=== PATIENT | female | born 1960 | race African-American/Black ===

== ENCOUNTER 2020-11-03 18:42 | Emergency (ER) | payer OTHER ==
[2020-11-03 19:11] LABS: Hemoglobin 14.9 g/dL (12.0-16.0); Mean Corpuscular HGB CONC 31.4 g/dL (32.0-36.0); Mean Corpuscular Hemoglobin 26.7 pg (27.0-31.0); Mean Platelet Volume 7.7 fL (7.4-10.4); Platelet Count 315 thou/uL (130-400); RBC Distribution Width 12.6 % (11.5-14.5); Red Blood Cell (RBC) Count 5.57 mill/uL (4.20-5.40)
[2020-11-03 19:24] LABS: ALT (SGPT) 20 U/L (8-55); AST (SGOT) 22 U/L (5-34); Albumin 4.5 g/dL (3.5-5.0); Alkaline Phosphatase 73 U/L (40-110); Anion Gap 15 mmol/L (10-20); BUN (Urea Nitrogen) 11 mg/dL (9.8-20.1); Bilirubin, Total 0.3 mg/dL (0.2-1.2); Calc. Creatinine Clearance 0 mL/min (70-130); Carbon Dioxide 27 mmol/L (22-29); Chloride 105 mmol/L (98-107); Globulin 3.6 g/dL (2.4-3.5); Glucose 85 mg/dL (70-105); Potassium 4.1 mmol/L (3.5-5.1); Protein, Total 8.1 g/dL (6.0-8.3); Sodium 143 mmol/L (136-145)
[2020-11-03 19:42] LABS: CKMB 4.2 ng/mL (0-6.6)
[2020-11-03 19:43] LABS: Eosinophils 4 % (0-10); Lymphocytes 38 % (21-51); MDiff Complete? YES; Monocytes 16 % (0-10); Neutrophil 38 % (42-75); Reactive Lymphocytes 4 % (0-10)
[2020-11-03] MEDS ORDERED: Aspirin Chewable 81 MG TAB ONE ×2 (20:16)
[2020-11-03 20:51] LABS: Troponin I 0.022 ng/mL (< 0.028)
== END 2020-11-03 21:20 | disposition home or self-care (01) ==
LOC: BURERS 18:42
DX: R07.89 Other chest pain (principal); E78.5 Hyperlipidemia, unspecified; E78.00 Pure hypercholesterolemia, unspecified
CPT/HCPCS: 36415; 71045; 80053; 82553; 83605; 83690; 83880; 84484; 85025; 93005